=== PATIENT | male | born 1935 | race Caucasian/White ===

== ENCOUNTER 2020-02-15 07:29 | Inpatient (IN) ==
[2020-02-13 14:16] LABS: Basophils % 0.6 %; Eosinophils # 0.3 K/mcL (0.0-0.6); Eosinophils % 3.7 %; Hematocrit 41.7 % (37.5-50.1); Hemoglobin 13.6 g/dL (12.9-16.9); Immature Granulocytes % 0.3 % (0-4); Lymphocytes # 1.4 K/mcL (0.6-4.6); Lymphocytes % 19.3 %; Mean Corpuscular HGB Conc 32.6 g/dL (31.6-35.5); Mean Corpuscular Hemoglobin 31.9 pg (28.0-33.3); Mean Corpuscular Volume 97.9 fL (83.0-100.0); Mean Platelet Volume 9.8 fL (9.4-12.4); Monocytes # 0.6 K/mcL (0.0-1.3); Neutrophils # 4.8 K/mcL (1.6-8.9); Platelet Count 255 K/mcL (140-400); Red Blood Count 4.26 M/mcL (4.19-5.50); Segmented Neutrophils % 68.1 %
[2020-02-13 14:41] LABS: BUN/Creatinine Ratio 17 (6-26); Blood Urea Nitrogen 18 mg/dL (8-23); Calcium 9.4 mg/dL (8.6-10.3); Carbon Dioxide 29 mEq/L (23-29); Chloride 104 mEq/L (98-107); Glucose 178 mg/dL (70-105); Osmolality,Calculated 294 (280-300); Potassium 4.3 mEq/L (3.5-5.1); Sodium 139 mEq/L (136-145); eGFR For African Americans > 60 (> 60); eGFR For Non-African Americans > 60 (> 60)
[2020-02-15] MEDS ORDERED: Lidocaine -MPF 2% 2 ML VIAL ONE (08:16)
[2020-02-15] MEDS ORDERED: Lidocaine HCL 4 ML Topical Solution (Laryng-O-Jet Kit Sterile Pak) TP ONE (08:16)
[2020-02-15] MEDS ORDERED: Ondansetron 4 MG/2 ML VIAL ONE (08:16)
[2020-02-15] MEDS ORDERED: Dexamethasone 4 MG/ML VIAL ONE (08:16)
[2020-02-15] MEDS ORDERED: *HR* Succinylcholine 200 MG/10 ML VIAL IVP ONE (08:16)
[2020-02-15] MEDS ORDERED: *HR* Propofol 200 MG/20 ML VIAL IVP ONE (08:18)
[2020-02-15] MEDS ORDERED: *HR* FentaNYL (PF) 100 MCG/2 ML VIAL ONE (08:19)
[2020-02-15] MEDS ORDERED: Ropivacaine/PF 0.5% 30 ML VIAL ONE ×2 (08:42→08:55)
[2020-02-15] MEDS ORDERED: ROPIVACAINE/PF/NS 0.25% 1 EACH SYRINGE INTRAART ONE ×2 (08:42→08:55)
[2020-02-15] MEDS ORDERED: Vancomycin 1,000 MG VIAL ONE (08:50)
[2020-02-15] MEDS ORDERED: Ethanol\\Acetic Acid\\Na Ace\\Ben 1,000 ML IRRIG.SOLN IR ONE (08:51)
[2020-02-15] MEDS ORDERED: CeFAZolin Syr 2,000MG/20 ML 2,000 MG/20 ML SYRINGE IVPB ONE (08:57)
[2020-02-15] MEDS ORDERED: Ringers Solution, Lactated 1,000 ML IVC SCH ×2 (09:00→12:57)
[2020-02-15] MEDS ORDERED: *HR* OxyCODONE Immed Rel 5 MG TABLET PO PRN ×2 (09:06→12:57)
[2020-02-15] MEDS ORDERED: *HR* HYDROmorphone PF 0.5 MG/0.5 ML SYRINGE IVP PRN (09:06)
[2020-02-15] MEDS ORDERED: Ondansetron 4 MG/2 ML VIAL IVP ONE (09:06)
[2020-02-15] MEDS ORDERED: *HR* PHENYLEPHRINE 1,000 MCG/10 ML SYRINGE IVP ONE (09:49)
[2020-02-15 11:13] LABS: Hematocrit 39.4 % (37.5-50.1)
[2020-02-15] MEDS ORDERED: Sennosides 8.6 MG TABLET PO PRN (12:57)
[2020-02-15] MEDS ORDERED: Ondansetron 4 MG/2 ML VIAL IVP PRN (12:57)
[2020-02-15] MEDS ORDERED: *HR* OxyCODONE/APAP 5/325 TABLET PO PRN (12:57)
[2020-02-15] MEDS ORDERED: *HR* Dextrose 50 % in Water (Syg) 50 ML SYRINGE IVP PRN (12:57)
[2020-02-15] MEDS ORDERED: MOM Conc 10 ML UD.LIQ PO PRN (12:57)
[2020-02-15] MEDS ORDERED: Dextrose Gel 15 GM/37.5 ML TUBE PO PRN ×2 (12:57)
[2020-02-15] MEDS ORDERED: Naloxone 0.4 MG/ML INJ IVP PRN (12:57)
[2020-02-15] MEDS ORDERED: D5% in Water 1,000 ML IVC PRN (12:57)
[2020-02-15] MEDS: CeFAZolin 2 GM/120 ML BAG IVPB SCH ×2 (15:04→23:59)
[2020-02-15] MEDS: Insulin LISPRO 300 UNITS/3 ML VIAL SQ SCH ×2 (17:41→17:49)
[2020-02-15] MEDS: *HR* Enoxaparin 30 MG/0.3 ML SYRINGE SQ SCH (17:49)
[2020-02-15] MEDS ORDERED: *HR* Enoxaparin 30 MG/0.3 ML SYRINGE SQ SCH ×2 (18:00)
[2020-02-15] MEDS ORDERED: Insulin LISPRO 300 UNITS/3 ML VIAL SQ SCH (21:00)
[2020-02-16] MEDS: *HR* Enoxaparin 30 MG/0.3 ML SYRINGE SQ SCH (05:21)
[2020-02-16 06:47] LABS: Hematocrit 38.3 % (37.5-50.1); Hemoglobin 12.8 g/dL (12.9-16.9)
[2020-02-16 06:59] LABS: BUN/Creatinine Ratio 19 (6-26); Blood Urea Nitrogen 20 mg/dL (8-23); Calcium 9.1 mg/dL (8.6-10.3); Carbon Dioxide 24 mEq/L (23-29); Chloride 106 mEq/L (98-107); Glucose 174 mg/dL (70-105); Osmolality,Calculated 295 (280-300); Potassium 4.3 mEq/L (3.5-5.1); Sodium 139 mEq/L (136-145); eGFR For African Americans > 60 (> 60); eGFR For Non-African Americans > 60 (> 60)
[2020-02-16] MEDS: Insulin LISPRO 300 UNITS/3 ML VIAL SQ SCH ×2 (08:09→12:38)
[2020-02-16] MEDS ORDERED: Multivit/Ca/Min/Fe/FA 1 TAB TABLET PO SCH (09:00)
[2020-02-16] MEDS ORDERED: *HR* Metformin 500 MG TABLET PO SCH (09:00)
[2020-02-16] MEDS ORDERED: Aspirin Enteric Coated 81 MG Tablet PO SCH (09:00)
[2020-02-16 12:05] VITALS: BP 131/65
== END 2020-02-16 17:52 | disposition home or self-care (01) | DRG 483 ==
LOC: SAMDAY 07:29 → 3NENU 12:55
PROVIDERS: ADMIT Orthopaedic Surgery; ATTEND Orthopaedic Surgery